=== PATIENT | female | born 1995 | race Caucasian/White ===

== ENCOUNTER 2021-05-09 22:09 | Emergency (ER) | payer OTHER ==
[~2021-05-09] VITALS: Ht 162.5 cm; Wt 127.0 kg
[~2021-05-09 22:09] MED LIST: ANTIBIOTIC PO; MOTRIN800 MG PO; NKHM; VOLTAREN50 M1 PO
[2021-05-09 23:15] VITALS: BP 143/83
[2021-05-10] MEDS ORDERED: WAL ITIN PO (04:23)
== END 2021-05-10 04:31 | disposition home or self-care (01) ==
LOC: ED 22:09
DX: J06.9 Acute upper respiratory infection, unspecified (principal); Z20.822 Contact with and (suspected) exposure to COVID-19; Z98.890 Other specified postprocedural states

== ENCOUNTER 2025-05-20 12:04 | Emergency (ER) | payer OTHER, MEDICARE ==
[~2025-05-20] VITALS: Ht 167.6 cm; Wt 147.1 kg
[~2025-05-20 12:04] MED LIST changes: +WAL ITIN PO
[2025-05-20 12:07] VITALS: BP 138/64
== END 2025-05-20 15:04 | disposition home or self-care (01) ==
LOC: ED 12:04
DX: S16.1XXA Strain of muscle, fascia and tendon at neck level, initial encounter (principal); R51.9 Headache, unspecified; Z98.890 Other specified postprocedural states; V89.2XXA Person injured in unspecified motor-vehicle accident, traffic, initial encounter; Y93.I9 Activity, other involving external motion; Y92.488 Other paved roadways as the place of occurrence of the external cause; Y99.8 Other external cause status